=== PATIENT | female | born 1960 ===

== ENCOUNTER 2017-08-19 21:32 | Emergency (ER) | payer SELFPAY ==
[2017-08-19 21:53] VITALS: BMI 28.7
[2017-08-19 21:56] VITALS: TEMP 98.8
[2017-08-19 23:36] LABS: HEMOGLOBIN 12.6 g/dL (12.0-16.0); MEAN CELL VOLUME 81.8 fl (81.0-99.0); MEAN CORPUSCULAR HEMOGLOBIN 27.4 pg (27.0-31.0); MEAN CORPUSCULAR HGB CONC 33.4 g/dL (33.0-37.0); RBC 4.61 Mil/uL (3.80-5.20); RED CELL DISTRIBUTION WIDTH 14.7 % (11.5-14.5); WHITE BLOOD COUNT 8.5 K/uL (4.8-10.8)
[2017-08-19 23:45] LABS: BLOOD UREA NITROGEN 14 mg/dl (7-17); CALCIUM 9.2 mg/dL (8.4-10.2); GFR AFRICAN-AMERICAN > 60; GFR NON-AFRICAN AMERICAN > 60
--- NOTE | 2017-08-19 23:46 | ED PDOC ---
HPI: Hypertension/Hypotension Time Seen by Provider: 08/19/17 22:46 Chief Complaint (Nursing): Dizziness/Lightheaded Chief Complaint (Provider): Hypertension History Per: Patient History/Exam Limitations: no limitations Onset/Duration Of Symptoms: Days (x3) Current Symptoms Are (Timing): Still Present Associated Symptoms: denies: Chest Pain, Dyspnea, Headache Additional Complaint(s): 56 year old female presents to ED with complaints of elevated blood pressure at home x3 days and has a past medical history of diabetes mellitus and HTN ( compliant with amlodipine and lisinopril QD). (+) dizziness and nausea. Patient reports that her systolic pressure was 190 today, causing her to feel anxious and prompting her to present for ED evaluation. Notes that dizziness has resolved but that she still feels a "little" nausea. (-) headache, chest pain, SOB, numbness, or weakness. Of note, patient took an extra dose of lisinopril earlier today. PCP: Alfred Antunez Past Medical History Reviewed: Historical Data, Nursing Documentation, Vital Signs Vital Signs: Last Vital Signs Temp 98.8 F 08/19/17 21:52 Pulse 75 08/19/17 21:52 Resp 18 08/19/17 21:52 BP 176/90 H 08/19/17 21:52 Pulse Ox 99 08/19/17 21:52 - Medical History PMH: Diabetes, Hyperthyroidism - Family History Family History: States: Unknown Family Hx - Living Arrangements Living Arrangements: With Family - Social History Drugs: Denies - Allergies Allergies/Adverse Reactions: Allergies Allergy/AdvReac Type Severity Reaction Status Date / Time No Known Allergies Allergy Verified 08/19/17 21:52 Review of Systems ROS Statement: Except As Marked, All Systems Reviewed And Found Negative Cardiovascular: Negative for: Chest Pain Respiratory: Negative for: Shortness of Breath Gastrointestinal: Positive for: Nausea ("little" nausea currently) Neurological: Positive for: Dizziness (resolved). Negative for: Weakness, Numbness, Headache Physical Exam - Reviewed Nursing Documentation Reviewed: Yes Vital Signs Reviewed: Yes - Physical Exam Appears: Positive for: Well (smiling, well-appearing), Non-toxic, No Acute Distress Skin: Positive for: Normal Color, Warm, Dry Cardiovascular/Chest: Positive for: Regular Rate, Rhythm. Negative for: Murmur Respiratory: Positive for: Normal Breath Sounds. Negative for: Respiratory Distress Gastrointestinal/Abdominal: Positive for: Soft. Negative for: Tenderness Extremity: Positive for: Normal ROM. Negative for: Deformity Neurologic/Psych: Positive for: Alert, manager nursing home II-XII, Oriented, Cerebellar Tests ( normal), Gait (normal). Negative for: Motor/Sensory Deficits, Aphasia, Facial Droop - Laboratory Results Result Diagrams: 08/19/17 23:33 08/19/17 23:33 - ECG O2 Sat by Pulse Oximetry: 99 (RA) Pulse Ox Interpretation: Normal Medical Decision Making Medical Decision Makin Initial impression: 56 year old female with elevated blood pressure readings at home and nausea in setting of a history of HTN and DM \\ Initial plan: Upon ED arrival, patient appears well and has a systolic pressure of 174 in triage. Finger stick results WNL. Hypertensive readings likely secondary to anxiety. Not concerned for hypertensive emergency at this time. Will check basic blood work, keep patient on a cardiac monitor technician, and repeat blood pressure reading. * Labs * Trop I * Zofran Inj 4mg PO * UA * Re-eval 0100 Labs reviewed: no clinically significant abnormalities Upon re-evaluation patient's blood pressure is completely resolved and patient notes feeling better. Provider advised patient to follow up with PMD. Return precautions given and patient verbalizes understanding. Patient is stable for discharge home. Dx: hypertension Condition: improved Scribe Attestation: Documented by Sydni Aranda acting as a scribe for Teodoro Garcia MD. Scribe Attestation: All medical record entries made by the Scribe were at my direction and personally dictated by me. I have reviewed the chart and agree that the record accurately reflects my personal performance of the history, physical exam, medical decision making, and the department course for this patient. I have also personally directed, reviewed, and agree with the discharge instructions and disposition. Disposition - Clinical Impression Clinical Impression: Dizziness, Hypertension - Disposition Referrals: Alfred Antunez MD [Family Provider] - Disposition: Routine/Home Disposition Time: 01:00 Condition: IMPROVED Instructions: High Blood Pressure in Adults, Controlling Your Blood Pressure Through Lifestyle Forms: [facility] (Romansh) Print Language: [id number]
[2017-08-20 00:38] LABS: SQUAMOUS EPITHIAL 1 /hpf (0-5); URINE BILIRUBIN NEGATIVE (NEGATIVE); URINE BLOOD NEGATIVE (NEGATIVE); URINE CLARITY CLEAR (Clear); URINE COLOR STRAW (YELLOW); URINE GLUCOSE (UA) NEG (Normal); URINE LEUKOCYTE ESTERASE TRACE Leu/uL (Negative); URINE PROTEIN NEGATIVE (NEGATIVE); URINE UROBILINOGEN 0.2-1.0 mg/dL (0.2-1.0)
[2017-08-20 00:57] VITALS: BP 137/84; PULSE 66; RESP 19
[2017-08-20 01:05] VITALS: O2SAT 99
== END 2017-08-20 01:31 | disposition home or self-care (01) ==
LOC: H.ER 21:32
DX: R42 Dizziness and giddiness (principal); I10 Essential (primary) hypertension; E11.9 Type 2 diabetes mellitus without complications; E05.90 Thyrotoxicosis, unspecified without thyrotoxic crisis or storm